=== PATIENT | female | born 1990 | race Caucasian/White ===

== ENCOUNTER 2020-05-20 07:34 | Outpatient (REF) | payer SELFPAY | END 2020-05-20 07:35 | disposition home or self-care (01) | LOC: HO.LAB 07:34 | PROVIDERS: Visit Provider Internal Medicine | DX: Z20.828 Contact with and (suspected) exposure to other viral communicable diseases (principal) | CPT/HCPCS: C9803; U0003 ==

== ENCOUNTER 2024-01-19 01:55 | Emergency (ER) | payer BC, SELFPAY ==
--- NOTE | ~2024-01-19 | US_ITS ---
EXAMINATION: US ABDOMEN LIMITED CLINICAL INFORMATION: Upper abdominal pain, question cholelithiasis. COMPARISON: None available. TECHNIQUE: Real-time imaging of the right upper quadrant abdominal viscera. FINDINGS: PANCREAS: The visualized proximal portion of the pancreas is unremarkable. The distal portion is obscured secondary to overlying bowel gas. LIVER: The liver is normal in size. The liver contour is normal. Parenchymal echogenicity is normal. No focal hepatic lesion. There is no intrahepatic biliary duct dilatation seen. GALLBLADDER: The gallbladder is physiologically distended without evidence of stones, sludge, polyps, wall thickening or pericholecystic fluid. Sonographic Gonzalez sign is reportedly negative. COMMON BILE DUCT: Normal in caliber measuring 0.4 cm in diameter. RIGHT KIDNEY: No hydronephrosis. No renal calculi or focal parenchymal lesions. The kidney measures 11.0 cm in maximum dimension. FREE FLUID: Trace fluid noted at the hepatorenal fossa. US/US abdomen limited IMPRESSION: 1. Normal appearance of the gallbladder. 2. Trace fluid in the hepatorenal fossa, nonspecific.
[2024-01-19 02:00] VITALS: BP 140/79; PULSE 75; RESP 18; TEMP 36.6; O2SAT 97; BMI 46.4
[2024-01-19 02:15] LABS: MANUAL DIFF FLAG NO
[2024-01-19 02:16] LABS: Basophils Percent Auto 0.3 % (0-2); Eosinophils Absolute Auto 0.2 X10*3/uL (0.0-0.4); Eosinophils Percent Auto 1.8 % (0-4); Hematocrit 39.2 % (37.0-47.0); Imm Gran Abs Auto 0.05 X10*3/uL (0.00-0.03); Imm Gran Pct Auto 0.5 % (0.0-0.4); Lymphocytes Absolute Auto 1.5 X10*3/uL (1.2-4.9); Lymphocytes Percent Auto 16.6 % (20-40); Mean Corpuscular HGB Conc 35.7 g/dl (31.0-35.0); Mean Corpuscular Hemoglobin 31.7 pg (27.0-33.0); Mean Corpuscular Volume 88.7 fL (80.0-98.0); Mean Platelet Volume 9.1 fL (9.4-12.3); Monocytes Absolute Auto 0.6 X10*3/uL (0.1-1.2); Monocytes Percent Auto 6.6 % (2-11); Neutrophils Absolute Auto 6.9 x10*3/uL (2.0-8.3); Neutrophils Percent Auto 74.2 % (45-73); Platelet Count 298 X10*3/uL (160-400); Red Blood Count 4.42 X10*6/uL (4.20-5.50); Red Cell Distribution Width 12.3 % (11.0-16.0); White Blood Count 9.3 X10*3/uL (4.8-10.8)
[2024-01-19 02:33] LABS: Alanine Aminotransferase 40 U/L (0-31); Albumin Level 4.2 g/dL (3.5-5.0); Alkaline Phosphatase 56 U/L (39-117); Anion Gap 13 (12-20); Aspartate Amino Transferase 33 U/L (5-31); Bilirubin Total 0.6 mg/dL (0.0-1.0); Blood Urea Nitrogen 7 mg/dL (9-16); Calcium 9.7 mg/dL (8.4-10.2); Carbon Dioxide 24 mmol/L (22-29); Chloride 106 mmol/L (96-108); Creatinine Clr Calc Pharmacy 133.3; Estimated Glomerular Filt Rate > 60; Glucose Random 98 mg/dL (60-115); Lipase 14 U/L (8-78); Potassium 3.3 mmol/L (3.3-5.1); Sodium 140 mmol/L (135-145); Total Protein 6.7 g/dL (6.5-8.0)
--- NOTE | 2024-01-19 02:38 | ED.ABDPAIN ---
HPI - Abdominal Pain General Chief Complaint: Abdominal Pain Stated Complaint: stomach pain Time Seen by Provider: 01/19/24 02:35 Source: patient Mode of arrival: ambulatory Limitations: no limitations History of Present Illness ED Provider: cornelius HOLLEY narrative: Patient with no significant bed medical history apparently was n vacation had few drinks about 2 weeks ago since then complaining of pain in epigastric area was seen at urgent care center was given omeprazole and Zofran without much relief pain is localized in epigastric area with slight nausea no fever no chills Related Data Previous Rx's ?Medication ?Instructions ?Recorded omeprazole 20 mg capsule,delayed 20 mg PO DAILY #20 caps 01/19/24 release sucralfate 1 gram tablet 1 g PO TID #60 tabs 01/19/24 Allergies Allergy/AdvReac Type Severity Reaction Status Date / Time Penicillins Allergy Hives Verified 01/19/24 02:04 Review of Systems Review of Systems Yes all other systems are reviewed and are negative PMFSH Social History Social History Smoked in Last 30 Days: No Use of substances other than those prescribed or required for medical reasons: Yes Substance Use Type: Marijuana Substance Use Frequency: Occasionally Advance Directives: No Advance Directives Information Provided: No Patient : No Physical Exam ED Vital Signs: Vital Signs - 24 hr 01/19/24 02:00 01/19/24 04:07 Temperature 97.8 F 97.8 F Pulse Rate 75 65 Respiratory Rate 18 18 Blood Pressure 140/79 H 106/67 Pulse Oximetry 97 98 Oxygen Delivery Method Room Air Room Air BMI result Body Mass Index 46.4 Appearance: Alert. Oriented X3. No acute distress. Eyes: No pallor or icterus ENT: Pharynx normal. Oral Mucosa moist Neck: Normal inspection. Neck supple. CVS: Normal heart rate and rhythm. Pulses normal. Respiratory: No respiratory distress. Equal air entry bilateral, no wheezing/rales/rhonchi Abdomen: Soft and tender in epigastric area Gonzalez sign negative. Bowel sounds are present, no mass palpable, no CVA tenderness Skin: Skin warm and dry. Normal skin color. Normal skin turgor. Neuro: Oriented X 3. Medical Decision Making Medical Decision Making MDM Narrative: Patient's ultrasound is negative labs are stable patient advised to continue omeprazole for possible gastritis and follow with PCP Differential Diagnosis Differential Diagnoses: The differential diagnosis associated with the presentation includes Acute gastritis/duodenal ulcers/UTI/pancreatitis/gallstone/cholecystitis Lab Data MDM Lab Attestation statement: I reviewed the patient's lab results. 01/19/24 02:11 01/19/24 02:11 Labs: Lab Results 01/19/24 01/19/24 Range/Units 02:11 02:35 WBC 9.3 (4.8-10.8) X10*3/uL RBC 4.42 (4.20-5.50) X10*6/uL Hgb 14.0 (12.0-16.0) g/dl Hct 39.2 (37.0-47.0) % MCV 88.7 (80.0-98.0) fL MCH 31.7 (27.0-33.0) pg MCHC 35.7 H (31.0-35.0) g/dl RDW 12.3 (11.0-16.0) % Plt Count 298 (160-400) X10*3/uL MPV 9.1 L (9.4-12.3) fL Immature Gran % (Auto) 0.5 H (0.0-0.4) % Neut % (Auto) 74.2 H (45-73) % Lymph % (Auto) 16.6 L (20-40) % Howard % (Auto) 6.6 (2-11) % Eos % (Auto) 1.8 (0-4) % Baso % (Auto) 0.3 (0-2) % Lymph # (Auto) 1.5 (1.2-4.9) X10*3/uL Howard # (Auto) 0.6 (0.1-1.2) X10*3/uL Eos # (Auto) 0.2 (0.0-0.4) X10*3/uL Baso # (Auto) 0.0 (0.0-0.2) X10*3/uL Abs Immat Gran (auto) 0.05 H (0.00-0.03) X10*3/uL Absolute Neuts (auto) 6.9 (2.0-8.3) x10*3/uL Absolute Nucleated RBC 0.000 (0.0-0.012) X10*3/uL Nucleated RBC % (auto) 0.0 (0.0-0.2) /100WBC Sodium 140 (135-145) mmol/L Potassium 3.3 (3.3-5.1) mmol/L Chloride 106 (96-108) mmol/L Carbon Dioxide 24 (22-29) mmol/L Anion Gap 13 (12-20) BUN 7 L (9-16) mg/dL Creatinine 0.79 (0.5-1.4) mg/dL Estim Creat Clear Calc 133.3 Estimated GFR > 60 Random Glucose 98 (60-115) mg/dL Calcium 9.7 (8.4-10.2) mg/dL Total Bilirubin 0.6 (0.0-1.0) mg/dL AST 33 H (5-31) U/L ALT 40 H (0-31) U/L Alkaline Phosphatase 56 (39-117) U/L Total Protein 6.7 (6.5-8.0) g/dL Albumin 4.2 (3.5-5.0) g/dL Lipase 14 (8-78) U/L Urine Color Dark Yellow Urine Appearance Clear Urine pH 5.5 (5.0-9.0) Ur Specific [place] 1.025 (1.005-1.025) Urine Protein 30 (1+) H (Neg-Trace) mg/dL Urine Glucose (UA) Negative (Negative) mg/dL Urine Ketones Trace (Negative) mg/dL Urine Blood Small (1+) H (Negative) Urine Nitrite Negative (Negative) Ur Leukocyte Esterase Small (1+) H (Negative) Urine RBC 6-10 H (0-2) /HPF Urine WBC 11-20 H (0-5) /HPF Ur Squamous Epith Cells 6-10 (0-2) /HPF Urine Bacteria Trace (None Seen) Hyaline Casts 0-2 (0-2) /LPF Urine Test NEGATIVE (NEGATIVE) Independent Interpretation I performed an independent interpretation of an: Ultrasound Interpretation: neg for stone Radiology Impression Discussion of test interpretation with radiology: I have reviewed the radiologist's reading. Discharge Plan Discharge Clinical Impression: Gastritis Patient Disposition: Home, Self-Care Instructions: Gastritis (ED) Additional Instructions: Likely have gastritis ultrasound negative for gallstones Continue omeprazole as prescribed Take sucralfate 1 tablet 3 times a day Follow with PCP if not better Prescriptions: New omeprazole 20 mg capsule,delayed release(DR/EC) 20 mg PO DAILY Qty: 20 0RF sucralfate 1 gram tablet 1 g PO TID Qty: 60 0RF Interventions: ED Discharge Assessment Last Done: 01/19/24 04:07 Discharge Date/Time: 01/19/24 04:05 Print Language: Bhutanese
[2024-01-19 02:43] LABS: Appearance Urine Clear; Color Urine Dark Yellow; Glucose Urine UA Negative (Negative); Leukocyte Esterase Urine Small (1+) (Negative); Nitrite Urine Negative (Negative); PH 5.5 (5.0-9.0); Specific Gravity - Urine 1.025 (1.005-1.025); UMIC TRIGGER UACC YES; Urine Blood Small (1+) (Negative); Urine Ketones Trace mg/dL (Negative); Urine Protein 30 (1+) mg/dL (Neg-Trace)
[2024-01-19 02:44] LABS: UPreg QC Valid YES; Urine Pregnancy NEGATIVE (NEGATIVE)
[2024-01-19 02:59] LABS: Bacteria Urine Trace (None Seen); Hyaline Casts Urine 0-2 /LPF (0-2); UACC Culture Trigger YES
--- NOTE | 2024-01-19 03:46 | PC.NURSE ---
pt denies any needs at this time, awaiting US results.
[2024-01-19 04:07] VITALS: BP 106/67; PULSE 65; RESP 18; TEMP 36.6; O2SAT 98
== END 2024-01-19 04:05 | disposition home or self-care (01) ==
PROVIDERS: Emergency Provider Internal Medicine
DX: K29.70 Gastritis, unspecified, without bleeding (principal); R10.13 Epigastric pain
CPT/HCPCS: 36415; 76705; 80053; 81001; 81025; 83690; 85025; 87086; 99284

== ENCOUNTER 2024-01-19 18:38 | Emergency (ER) | payer BC, SELFPAY ==
[2024-01-19 19:13] VITALS: BP 139/84; PULSE 89; RESP 18; TEMP 36.8; O2SAT 98; BMI 46.3
--- NOTE | 2024-01-19 20:34 | PC.NURSE ---
Pt stated to Registration desk she was leaving without further assessment. This RN was not notifed pt LWBS.
== END 2024-01-19 20:41 | disposition left against medical advice (07) ==
LOC: HO.ED 20:39
PROVIDERS: Emergency Provider Emergency Medicine
DX: R10.9 Unspecified abdominal pain (principal); Z53.21 Procedure and treatment not carried out due to patient leaving prior to being seen by health care provider
CPT/HCPCS: 99281

== ENCOUNTER 2024-02-08 15:08 | Outpatient (AMB) | payer BC, SELFPAY ==
[2024-02-08 15:15] VITALS: BP 102/70; PULSE 73; O2SAT 99; BMI 41.9
--- NOTE | 2024-02-08 15:15 | MHC.PC.OV ---
Vital Signs 02/08/24 15:15 Height 5 ft 4 in Weight 244 lb BMI 41.9 BP 102/70 Blood Pressure Location Lt brachial Position Sitting Pulse 73 Pulse Source Pulse Oximeter Pulse Oximetry (%) 99 Oxygen Delivery Method Room Air Intake Visit Reasons: physical Intake Note: Patient is here today for a physical. Bellmaker Required: No Allergies Penicillins Allergy (Verified 02/08/24 15:39) Hives Medication List - Last Reconciled 02/08/24 by Ashtyn Tanner PA-C omeprazole 20 mg PO DAILY sucralfate 1 g PO TID Tobacco use date assessed: 02/08/24 Dental Screening Dental Screen Date: 02/08/24 Did you have a dental visit in the last 12 months?: No Did you have a dental problem in the last 6 months where you did not have access to dental care?: No HPI physical HPI Details 33-year-old female with no documented past medical history coming to the office for the 1st time. Patient was recently seen in emergency department for gastritis continue on omeprazole and given sucralfate. Today she states she has been doing generally well the abdominal pain has been improving. She had been using a friend's muscle relaxers to help with the stomach cramps and did find good relief with this. She no longer has diarrhea. She does mentioned she has a hard time concentrating and does struggle with some degree of anxiety as well. She does not regularly follow with a marine engineering teacher and has not had routine Pap smears. She also mentioned she has several skin tags around her neck and chest area that she would like to have evaluated. [facility] Social History Patient Tobacco Use Status: Never used Tobacco Substance Use Type: Marijuana service: No Cognitive needs: No Hearing needs: No Vision needs: No Female Reproductive History Menstrual control method: none History of abnormal pap smear: No History of STI: No History of abnormal mammogram: No Questionnaire PHQ-9 Over the last 2 weeks, how often have you been bothered by any of the following problems? 1. Little interest or pleasure in doing things: not at all 2. Feeling down, depressed, or hopeless: not at all 3. Trouble falling or staying asleep, or sleeping too much: several days 4. Feeling tired or having little energy: not at all 5. Poor appetite or overeating: not at all 6. Feeling bad about yourself - or that you are a failure or have let yourself or your family down: not at all 7. Trouble concentrating on things, such as reading the newspaper or watching television: more than half the days 8. Moving or speaking so slowly that other people could have noticed. Or the opposite - being so fidgety or restless that you have been moving around a lot more than usual: not at all 9. Thoughts that you would be better off or of hurting yourself in some way: not at all Total score: 3 Depression Screening Interpretation: Negative Depression Screening Done: Yes 79091 - PHQ-9 Billing: Yes Source: Developed by Drs. Noé Ochoa, Sariah Ryan, Deo Porter and colleagues, with an educational philipp from [employer] Thrive Questionnaire Date Thrive assessed: 02/01/24 I am a: Patient What is your living situation today?: I have a steady place to live Within the past 12 months, did the food you bought not last and you didn't have the money to get more?: Never true Within the past 12 months, did you worry whether your food would run out before you got money to buy more?: Never true Do you have trouble paying for medicines?: No Do you have trouble getting transportation to medical appointments?: No Do you have trouble paying your heating and electricity bill?: No Do you have trouble taking care of your child, family member or friend?: No Do you have trouble with day-to-day activities such as bathing, preparing meals, shopping, managing finances, etc.?: No Are you currently unemployed and looking for a job?: No Are you interested in more education?: No Please select the resources that you would like help with: None Currently or been in a relationship where the following occur: No concerns reported THRIVE Score: 0 AUDIT C Alcohol Use Questionnaire (AUDIT-C) 1. How often do you have a drink containing alcohol?: 2-4 times a month 2. How many drinks containing alcohol do you have on a typical day when you are drinking?: 3 or 4 3. How often do you have six or more drinks on one occasion?: Less than monthly Total Score: 4 THAI-7 AMB Questionnaire THAI-7 Date THAI - 7 assessed: 02/08/24 Feeling nervous, anxious, or on edge: 1 = Several days Not being able to stop or control worryin = Several days Worrying too much about different things: 1 = Several days Trouble relaxin = Not at all Being so restless that it is hard to sit still: 0 = Not at all Becoming easily annoyed or irritable: 1 = Several days Feeling afraid as if something awful might happen: 0 = Not at all Total THAI-7 score (0-4 normal; 5-9 mild; 10-14 moderate; 15-21 severe): 4 Source: Developed by Drs. Noé Ochoa, Sariah Ryan, Deo Porter and colleagues, with an educational philipp from [employer] THAI-7 Assessment Billing THAI-7 Assessment Tool: THAI-7 Assessment 88937 Review of Systems Const Denies body aches, Denies fatigue, Denies fever(s), Denies frequent falls, Denies headache(s) and Denies weakness Eyes Reports no additional complaints and Denies change in vision ENT Denies dysphagia, Denies dizziness, Denies facial pain, Denies headache(s), Denies nasal congestion and Denies odynophagia Card Denies chest pain, Denies syncope, Denies irregular heart rhythm, Denies leg edema, Denies lightheadedness and Denies dyspnea Resp Denies cough and Denies dyspnea GI Reports abdominal pain, Denies constipation, Denies dysphagia, Denies dyspepsia, Denies diarrhea, Denies nausea, Denies odynophagia and Denies vomiting Denies urinary frequency, Denies dysuria, Denies urinary hesitancy and Denies urinary urgency Musc Denies back pain and Denies myalgias Skin/Breast Reports as per HPI Neuro Denies dizziness, Denies syncope, Denies frequent falls, Denies headache(s) and Denies weakness Psych Reports as per HPI Endo Denies fatigue Physical exam (Primary Care) Vital Signs: Last Vital Signs Pulse 73 02/08/24 15:15 BP 102/70 02/08/24 15:15 Pulse Ox 99 02/08/24 15:15 Oxygen Delivery Method Room Air 02/08/24 15:15 BMI result Body Mass Index 41.9 Tobacco/Smoking Status: Tobacco use Status Tobacco use date assessed 02/08/24 02/08/24 15:16 Patient Tobacco Use Status Never used Tobacco 02/08/24 15:23 PHQ-9: PHQ-9 Score PHQ-9: Total score 3 02/08/24 15:35 Depression Screening Interpretation: Negative Thrive Assessment: Date of Thrive Assessment Date Thrive assessed 02/01/24 02/08/24 15:16 Currently or been in a relationship where the following occur: No concerns reported Const General: cooperative, healthy appearing, comfortable and no acute distress Orientation/consciousness: patient oriented x3 HENMT Head: Yes normocephalic Ears: hearing grossly normal bilaterally General nose exam: Normal external nose present Eyes General: appearance normal, both eyes and all related structures Conjunctivae: conjunctivae normal Neck Neck: Yes full ROM and Yes no lymphadenopathy Resp Effort & Inspection: normal respiratory effort Auscultation: clear to auscultation bilaterally, no crackles, no rales, no rhonchi and no wheezes Cardio Rate: regular rate Rhythm: regular rhythm GI Inspection: Yes normal to inspection Palpation (GI): Soft to palpation, not firm, nontender, no guarding, not rigid and No Rebound tenderness present Skin Other: Several flesh-colored skin tags on neck and chest Neuro General: patient oriented x3 Gait exam (Neuro): Normal gait present Extrem General: Yes normal to inspection, Yes full ROM and No edema Psych Affect: normal affect Attitude: cooperative Insight: Good insight present (Psych) Judgement: Good judgement present (Psych) Assessment and Plan Assessment & Plan (1) Gastritis: Code(s): K29.70 - Gastritis, unspecified, without bleeding Plan: Patient states the acute flare that she has has not recurred. The abdominal pain has greatly improved however she does still get occasional cramping. The diarrhea has completely resolved at this time. We will trial dicyclomine for stomach cramps however did mentioned the patient if she continues to have symptoms she will need to be evaluated by GI. (2) Poor concentration: Code(s): R41.840 - Attention and concentration deficit Plan: Patient believes she may have ADHD on diagnosed and would like to be evaluated. Referral to [facility] placed for anxiety and ADHD to be established on medications. (3) Anxiety: Code(s): F41.9 - Anxiety disorder, unspecified Plan: Referral to outpatient psych clinic placed today. Also referred to counseling services. (4) Skin tag: Code(s): L91.8 - Other hypertrophic disorders of the skin Plan: Referral to Dermatology placed. (5) Elevated LFTs: Code(s): R79.89 - Other specified abnormal findings of blood chemistry Plan: Patient was found to have elevated LFTs on last blood work. We will follow with additional blood work and if continues to be elevated can consider abdominal ultrasound. Plan We will follow up in 2 months for annual physical. Referral to Gynecology placed for routine Pap smears. Routine blood work ordered. This note was constructed using voice recognition software. While every effort has been made to ensure accuracy and senior java software engineer, still areas may have been included sometimes these areas may affect the content or meeting of the given symptoms. Total time spent caring for the patient today was 30 minutes. This includes time spent before the visit reviewing the chart, time spent during the visit, and time spent after the visit and documentation. Orders: Orders Vitamin B12 and Folate Today Z00.00 - Encounter for general adult medical examination without abnormal findings Lipid Panel Today Z00.00 - Encounter for general adult medical examination without abnormal findings Free T4 (Free Thyroxine) Today Z00.00 - Encounter for general adult medical examination without abnormal findings Thyroid Stimulating Hormone Today Z00.00 - Encounter for general adult medical examination without abnormal findings Vitamin D 25-OH (D2 and D3) Today Z00.00 - Encounter for general adult medical examination without abnormal findings Liver Panel Today R79.89 - Other specified abnormal findings of blood chemistry Referrals PROGRAM MANAGEMENT SPECIALIST Referral Z00.00 - Encounter for general adult medical examination without abnormal findings Counseling Referral F41.9 - Anxiety disorder, unspecified Dermatology Referral L91.8 - Other hypertrophic disorders of the skin Psychiatry Outpatient Consultation Service F41.9 - Anxiety disorder, unspecified, R41.840 - Attention and concentration deficit Medications: New dicyclomine 20 mg PO BID PRN 14 tabs 0RF abdominal pain Coding Level of Care Code New Pt Level 4 (21161) Diagnoses Gastritis K29.70 Poor concentration R41.840 Anxiety F41.9 Skin tag L91.8 Elevated LFTs R79.89 Additional Codes THAI-7 Assessment Billing - THAI-7 Assessment Tool: THAI-7 Assessment 44786 ([id number])
== END 2024-02-08 16:10 | disposition home or self-care (01) ==
DX: K29.70 Gastritis, unspecified, without bleeding (principal); R41.840 Attention and concentration deficit; F41.9 Anxiety disorder, unspecified; L91.8 Other hypertrophic disorders of the skin; R79.89 Other specified abnormal findings of blood chemistry
CPT/HCPCS: 99204

== ENCOUNTER 2024-02-10 08:02 | Outpatient (REF) | payer BC, SELFPAY ==
[2024-02-10 09:08] LABS: Alanine Aminotransferase 21 U/L (0-31); Albumin Level 4.4 g/dL (3.5-5.0); Alkaline Phosphatase 57 U/L (39-117); Aspartate Amino Transferase 18 U/L (5-31); Bilirubin Direct 0.1 mg/dL (0.0-0.5); Bilirubin Total 0.4 mg/dL (0.0-1.0); Cholesterol 211 mg/dL (<200); HDL Cholesterol 40 mg/dL (>40); LDL Cholesterol Calculated 110 mg/dL (<100); Total Protein 7.2 g/dL (6.5-8.0); Triglycerides 307 mg/dL (<150)
[2024-02-10 09:23] LABS: Free T4 (Free Thyroxine) 0.82 ng/dL (0.71-1.85)
[2024-02-10 09:38] LABS: Folate 7.8 ng/mL (> or = 4.0); Vitamin B12 223 pg/mL (200-900)
[2024-02-15 17:23] LABS: Vitamin D 25-OH, D2 <4 ng/mL; Vitamin D 25-OH, D3 22 ng/mL; Vitamin D 25-OH, Total 22 ng/mL (30-100)
== END 2024-02-10 08:03 | disposition home or self-care (01) ==
LOC: HO.LAB 08:02
DX: Z00.00 Encounter for general adult medical examination without abnormal findings (principal); R79.89 Other specified abnormal findings of blood chemistry
CPT/HCPCS: 36415; 80061; 80076; 82306; 82607; 82746; 84439; 84443

== ENCOUNTER 2024-03-10 15:43 | Outpatient (AMB) | payer BC, SELFPAY ==
--- NOTE | 2024-03-10 16:14 | MHC.OFFVISPS ---
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 she has struggled with attention, focus, memory, procrastination most of her life but has always been able to compensate by working harder or longer on taks. She has struggled in her Master program especially with self- paced classes and now with studying for her professional licensure test. She works and gets behind with paperwork requirements as well. She denies depression or anxiety symptoms. Past Psychiatric History: none Subjective Subjective Subjective Medication Compliance: Yes Side effects from medications: No Review of Systems Medical Review of Systems: unchanged Mental Status Exam Mental Status Exam Patient Appearance: Well Grooomed and Appropriate Patient Orientation: Person, Place and Situation Level of Consciousness: Awake and Appropriate Patient Behavior: Appropriate and Cooperative Mood Description: Calm Affect Description: Calm Patient Cognition Impaired: No Ability to Follow Directions: Good Speech Pattern: Clear and Coherent Memory Description: Intact Hallucinations: None Delusions: Not Present Thought Process: Intact Thought Content: positive for Intact Judgement: Good Results Reviewed Results Reviewed: ADHD self report scale scored 30 for inattention and 21 for hyperactivity = moderate inattentive ADHD Assessment and Plan Assessment & Plan (1) ADHD (attention deficit hyperactivity disorder), inattentive type: Status: Acute Code(s): F90.0 - Attention-deficit hyperactivity disorder, predominantly inattentive type Plan trial of ritalin 10mg daily and may go up to BID 4 hours apart if tolerated Medications: New methylphenidate HCl (Ritalin) Partial Fill upon patient request. 10 mg PO DAILY 30 tabs 0RF Counseling and coordination of Care Pt. Self Management counseling: Exercise, Mindfulness, Mod caffeine/ETOH intake, Nutrition education and improvement and Sleep hygiene Medication management counseling: Effectiveness, Side effects, Dosing range, Duration, Drug interaction and Adherence Diagnosis and Prognosis Counseling: Accuracy of diagnosis, Prognosis over time, Impact of diagnosis on life functions, Impact of family relationship, Problematic behaviors secondary to diagnosis and Adequacy of current interventions Details: I spent 70 minutes reviewing the record, seeing the patient and documenting in the medical record. Counseling provided to the patient/caregiver as outlined below. Addressed patient/caregiver concerns regarding current medication regime including effective adherence. Addressed patient/caregiver concerns regarding diagnosis and prognosis including accuracy of diagnosis, prognosis over time, impact of diagnosis. Addressed patient/caregiver concerns regarding impact of recent stressors. [facility] Family History (Updated 03/13/24 @ 14:02 by Yani Nelson APRN) Brother ADHD (attention deficit hyperactivity disorder) Social History Patient Tobacco Use Status: Never used Tobacco Substance Use Type: Marijuana service: No Cognitive needs: No Hearing needs: No Vision needs: No Social History: lives with her lavern and her sister. grew up with both parents and 2 sibs both older than her; did well in school despite attention and focus problems. went to a small private school and had increased structure; made friends easily. Substance History: none Trauma History: none Coding Level of Care Code Psych Diag Eval w/Med (49941) Diagnoses ADHD (attention deficit hyperactivity disorder), inattentive type F90.0
== END 2024-03-10 16:01 | disposition home or self-care (01) ==
LOC: HO.HOP 15:43
PROVIDERS: Visit Provider Clinical Nurse Specialist Psychiatric/Mental Health
DX: F90.0 Attention-deficit hyperactivity disorder, predominantly inattentive type (principal)
CPT/HCPCS: 90792

== ENCOUNTER → 2024-03-10 15:43 | Outpatient (BNVA) | payer BC, SELFPAY | PROVIDERS: Visit Provider Clinical Nurse Specialist Psychiatric/Mental Health | DX: F90.0 Attention-deficit hyperactivity disorder, predominantly inattentive type (principal) | CPT/HCPCS: 90792 ==

== ENCOUNTER 2024-03-20 15:39 | Outpatient (AMB) | payer BC, SELFPAY ==
--- NOTE | 2024-03-20 15:27 | MHC.OFFVISPS ---
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 no change to sleep or appetite; no anxiety Past Psychiatric History: none Subjective Subjective Subjective Medication Compliance: Yes Side effects from medications: No Review of Systems Medical Review of Systems: unchanged Mental Status Exam Mental Status Exam Patient Appearance: Well Grooomed and Appropriate Patient Orientation: Person, Place, Time and Situation Level of Consciousness: Awake, Appropriate and Alert Patient Behavior: Appropriate Mood Description: Calm Affect Description: Calm Patient Cognition Impaired: No Ability to Follow Directions: Good Speech Pattern: Clear Memory Description: Intact Hallucinations: None Delusions: Not Present Thought Process: Intact and Distracted Thought Content: positive for Intact Judgement: Good Telehealth Telehealth Telehealth Platform: Other (please specify) ([employer]) Location of provider rendering services: practice address Location of patient: address on file Patient Identification confirmed using: Name, : Yes Telehealth method: video Patient verbally consented to treatment: Yes Patient verbally consented to billing insurance company: Yes Minutes spent on Phone/Video with Pt.: 20 Assessment and Plan Assessment & Plan (1) ADHD (attention deficit hyperactivity disorder), inattentive type: Status: Acute Code(s): F90.0 - Attention-deficit hyperactivity disorder, predominantly inattentive type Plan stop ritlain start concerta 36mg qam Medications: New methylphenidate HCl ER (Concerta) Partial Fill upon patient request. 36 mg PO DAILY 15 tabs 0RF Discontinued methylphenidate HCl (Ritalin) Partial Fill upon patient request. Discontinued Reason: Doctor's Order 10 mg PO DAILY 30 tabs 0RF Counseling and coordination of Care Pt. Self Management counseling: Maintenance-social rhythm, Mod caffeine/ETOH intake, Nutrition education and improvement, Sleep hygiene and Behavior activation Medication management counseling: Effectiveness, Side effects, Dosing range, Duration, Drug interaction and Adherence Diagnosis and Prognosis Counseling: Accuracy of diagnosis, Prognosis over time, Impact of diagnosis on life functions and Adequacy of current interventions Details: I spent 30 minutes reviewing the record, seeing the patient and documenting in the medical record. Counseling provided to the patient/caregiver as outlined below. Addressed patient/caregiver concerns regarding current medication regime including effective adherence. Addressed patient/caregiver concerns regarding diagnosis and prognosis including accuracy of diagnosis, prognosis over time, impact of diagnosis. Addressed patient/caregiver concerns regarding impact of recent stressors. [facility] Family History (Updated 03/13/24 @ 14:02 by Yani Nelson APRN) Brother ADHD (attention deficit hyperactivity disorder) Social History Patient Tobacco Use Status: Never used Tobacco Substance Use Type: Marijuana service: No Cognitive needs: No Hearing needs: No Vision needs: No Social History: lives with her fianc?e and her sister. grew up with both parents and 2 sibs both older than her; did well in school despite attention and focus problems. went to a small private school and had increased structure; made friends easily. Substance History: none Trauma History: none Coding Level of Care Code Tele Est Pt Level 4 (88336) Diagnoses ADHD (attention deficit hyperactivity disorder), inattentive type F90.0
== END 2024-03-20 15:51 | disposition home or self-care (01) ==
LOC: HO.HOP 15:39
PROVIDERS: Visit Provider Clinical Nurse Specialist Psychiatric/Mental Health
DX: F90.0 Attention-deficit hyperactivity disorder, predominantly inattentive type (principal)
CPT/HCPCS: 99214

== ENCOUNTER → 2024-03-20 15:39 | Outpatient (BNVA) | payer BC, SELFPAY | PROVIDERS: Visit Provider Clinical Nurse Specialist Psychiatric/Mental Health ==

== ENCOUNTER 2024-04-14 14:44 | Outpatient (AMB) | payer BC, SELFPAY ==
[2024-04-14 14:45] VITALS: BP 122/70; PULSE 58; O2SAT 99; BMI 41.2
--- NOTE | 2024-04-14 14:45 | A.OFFPC_ITS ---
Vital Signs 04/14/24 14:45 Height 5 ft 4 in Weight 240 lb 0.8 oz BMI 41.2 BP 122/70 Blood Pressure Location Lt brachial Position Sitting Pulse 58 Pulse Source Pulse Oximeter Pulse Oximetry (%) 99 Oxygen Delivery Method Room Air Intake Visit Reasons: 2 months follow up In Flight Technician Required: No Allergies Penicillins Allergy (Verified 04/14/24 14:46) Hives Medication List - Last Reconciled 04/14/24 by Ashtyn Tanner PA-C cholecalciferol (vitamin D3) 25 mcg PO DAILY dicyclomine 20 mg PO BID PRN methylphenidate HCl ER (Concerta) 36 mg PO DAILY omeprazole 20 mg PO DAILY sucralfate 1 g PO TID Tobacco use date assessed: 02/08/24 Dental Screening Dental Screen Date: 02/08/24 HPI 2 months follow up HPI Details 33-year-old female with past medical his tory of ADHD and anxiety last seen January 2024 coming in for follow up. In review of the notes, patient was seen by outpatient psych 03/20/2024 discontinue Ritalin at that time and started on Concerta 36 mg for ADHD. Patient feels the Concerta has not been working for her. She was scheduled to have an appointment with psych last week but missed the appointment and is rescheduling. Continues to have difficulty concentrating. [facility] Family History (Updated 03/13/24 @ 14:02 by Yani Nelson APRN) Brother ADHD (attention deficit hyperactivity disorder) Social History Patient Tobacco Use Status: Never used Tobacco Substance Use Type: Marijuana service: No Cognitive needs: No Hearing needs: No Vision needs: No Questionnaire Thrive Questionnaire Date Thrive assessed: 02/01/24 I am a: Patient What is your living situation today?: I have a steady place to live Within the past 12 months, did the food you bought not last and you didn't have the money to get more?: Never true Within the past 12 months, did you worry whether your food would run out before you got money to buy more?: Never true Do you have trouble paying for medicines?: No Do you have trouble getting transportation to medical appointments?: No Do you have trouble paying your heating and electricity bill?: No Do you have trouble taking care of your child, family member or friend?: No Do you have trouble with day-to-day activities such as bathing, preparing meals, shopping, managing finances, etc.?: No Are you currently unemployed and looking for a job?: No Are you interested in more education?: No Please select the resources that you would like help with: None Currently or been in a relationship where the following occur: No concerns reported THRIVE Score: 0 AUDIT C Alcohol Use Questionnaire (AUDIT-C) 1. How often do you have a drink containing alcohol?: 2-4 times a month 2. How many drinks containing alcohol do you have on a typical day when you are drinking?: 3 or 4 3. How often do you have six or more drinks on one occasion?: Less than monthly Total Score: 4 THAI-7 AMB Questionnaire THAI-7 Date THAI - 7 assessed: 02/08/24 Source: Developed by Drs. Noé Ochoa, Sariah Ryan, Deo Porter and colleagues, with an educational philipp from [employer]. Review of Systems Const Denies body aches, Denies chills and Denies fever(s) Eyes Reports no additional complaints ENT Reports no additional complaints Card Denies chest pain, Denies leg edema, Denies lightheadedness and Denies dyspnea Resp Denies dyspnea GI Reports no additional complaints Musc Reports no additional complaints Skin/Breast Reports system reviewed and no additional complaints, except as documented Physical exam (Primary Care) Vital Signs: Last Vital Signs Pulse 58 04/14/24 14:45 BP 122/70 04/14/24 14:45 Pulse Ox 99 04/14/24 14:45 Oxygen Delivery Method Room Air 04/14/24 14:45 BMI result Body Mass Index 41.2 Tobacco/Smoking Status: Tobacco use Status Tobacco use date assessed 02/08/24 04/14/24 14:48 Patient Tobacco Use Status Never used Tobacco 04/14/24 14:48 Thrive Assessment: Date of Thrive Assessment Date Thrive assessed 02/01/24 04/14/24 14:48 Currently or been in a relationship where the following occur: No concerns reported Const General: cooperative, healthy appearing, comfortable and no acute distress Orientation/consciousness: patient oriented x3 HENMT Head: Yes normocephalic Ears: hearing grossly normal bilaterally General nose exam: Normal external nose present Eyes General: appearance normal, both eyes and all related structures Conjunctivae: conjunctivae normal Neck Neck: Yes full ROM and Yes no lymphadenopathy Resp Effort & Inspection: normal respiratory effort Auscultation: clear to auscultation bilaterally, no crackles, no rales, no rhonchi and no wheezes Cardio Rate: regular rate Rhythm: regular rhythm Skin General skin exam: no rashes or lesions noted Neuro General: patient oriented x3 Gait exam (Neuro): Normal gait present Extrem General: Yes normal to inspection, Yes full ROM and No edema Psych Affect: normal affect Attitude: cooperative Insight: Good insight present (Psych) Judgement: Good judgement present (Psych) Office Procedures Flu Questionnaire Does the patient have a severe egg allergy?: No Does the patient have severe life threatening allergies?: No Does the patient have a fever or illness today?: No Has the patient ever had Guillain-Penrose Syndrome?: No Has the patient ever had any past reaction to a flu shot?: No Immunizations Fluarix Triv [id number] (PF) 45 mcg (15 mcg x 3)/0.5 mL IM syringe Performing Provider: Ashtyn Tanner PA-C [facility] Administered by: ZAK Peñaloza on 04/14/24 15:08 Dose Route Admin Location Dispensed Lot Number Expiration Date [facility] Judicial Clerk 0.5 mL IM Left Deltoid 0.5 mL [id number] 12/25/24 24672-071-17 [facility] V[facility] Given Date VIS Provided VIS Publication Date 04/14/24 Single Vaccine 21 Eligibility Eligibility Date Funding Source Not [facility] Eligible 04/14/24 Private Coding Level of Care Code Est Pt Level 3 (49014) Diagnoses ADHD (attention deficit hyperactivity disorder), inattentive type F90.0 Hypertriglyceridemia E78.1 Assessment & Plan Assessment & Plan (1) ADHD (attention deficit hyperactivity disorder), inattentive type: Code(s): F90.0 - Attention-deficit hyperactivity disorder, predominantly inattentive type Category: Medical Plan: Continue to follow with psych. Continue on present medication. (2) Hypertriglyceridemia: Code(s): E78.1 - Pure hyperglyceridemia Category: Medical Plan: Avoid foods that are high in cholesterol such as red meat, fried foods, eggs and baked goods. Triglyceride goal of less than 150 and LDL goal of less than 130. Ordered updated blood work and we will follow up in 3 months. Plan This note was constructed using voice recognition software. While every effort has been made to ensure accuracy and checker and packer, still areas may have been included sometimes these areas may affect the content or meeting of the given symptoms. Total time spent caring for the patient today was 20 minutes. This includes time spent before the visit reviewing the chart, time spent during the visit, and time spent after the visit and documentation. Orders: Orders Influenza [id number] Immunization Today Z23 - Encounter for immunization Lipid Panel Today E78.1 - Pure hyperglyceridemia Medications: New Fluarix Triv [id number] (PF) (flu vacc [id number] 6mos up(PF)) 0.5 mL IM ONCE 0.5 mL 0RF NS Z23 - Encounter for immunization
== END 2024-04-14 15:17 | disposition home or self-care (01) ==
DX: F90.0 Attention-deficit hyperactivity disorder, predominantly inattentive type (principal); E78.1 Pure hyperglyceridemia; Z23 Encounter for immunization

== ENCOUNTER → 2024-04-14 14:44 | Outpatient (BNVA) | payer BC, SELFPAY | DX: F90.0 Attention-deficit hyperactivity disorder, predominantly inattentive type (principal); E78.1 Pure hyperglyceridemia; Z23 Encounter for immunization | CPT/HCPCS: 90471; 90656 ==

== ENCOUNTER 2025-02-07 10:56 | Outpatient (REF) | payer OTHER, SELFPAY ==
[2025-02-07 11:16] LABS: MANUAL DIFF FLAG NO
[2025-02-07 11:35] LABS: Hematocrit 38.6 % (37.0-47.0); Hemoglobin 13.7 g/dl (12.0-16.0); Imm Gran Abs Auto 0.04 X10*3/uL (0.00-0.03); Imm Gran Pct Auto 0.5 % (0.0-0.4); Lymphocytes Absolute Auto 1.3 X10*3/uL (1.2-4.9); Mean Corpuscular HGB Conc 35.5 g/dl (31.0-35.0); Mean Corpuscular Hemoglobin 31.6 pg (27.0-33.0); Mean Corpuscular Volume 88.9 fL (80.0-98.0); NRBC Abs Auto 0.000 X10*3/uL (0.0-0.012); NRBC Pct Auto 0.0 /100WBC (0.0-0.2); Platelet Count 315 X10*3/uL (160-400); Red Blood Count 4.34 X10*6/uL (4.20-5.50); White Blood Count 8.8 X10*3/uL (4.8-10.8)
--- OUTSIDE RECORDS SUMMARY | 2025-02-07 11:51 | XMS_ITS | Encounter Summary ---
Author Organization [facility] Address [address] [place] [address] Phone Care Team Providers Care Vaccinator Name Role Phone Megan Mendoza MD Primary Care Provider [phone] Encounter Details Date Type Department Care Team (Late st Contact Info) Description 02/11/2017 Conversion Encounter [facility] [place] [address] [place] [address] Social History Tobacco Use Types Packs/Day Years Used Date Smoking Tobacco: Never Comments:Never smoker Comments Unknown Sex and Gender Information Value Date Recorded Sex Assigned at Not on file Legal Sex Female 4:45 PM EDT Gender Identity Not on file Sexual Orientation Not on file documented as of this encounter Plan of Treatment Not on file documented as of this encounter Visit Diagnoses Not on filedocumented in this encounter Care Teams Vaccinator Relationship Specialty Start Date End Date Megan Mendoza MD [address] [place] [address] PCP - General 02/05/17 08/12/22 documented as of this encounter
[2025-02-07 12:24] LABS: Alanine Aminotransferase 32 U/L (0-31); Albumin Level 4.6 g/dL (3.5-5.0); Alkaline Phosphatase 64 U/L (39-117); Anion Gap 10 (12-20); Aspartate Amino Transferase 35 U/L (5-31); Blood Urea Nitrogen 10 mg/dL (9-16); Calcium 9.2 mg/dL (8.4-10.2); Carbon Dioxide 27 mmol/L (22-29); Chloride 108 mmol/L (96-108); Cholesterol 215 mg/dL (<200); Estimated Glomerular Filt Rate > 60; HDL Cholesterol 39 mg/dL (>40); Potassium 4.2 mmol/L (3.3-5.1); Sodium 141 mmol/L (135-145); Total Protein 7.2 g/dL (6.5-8.0); Triglycerides 197 mg/dL (<150)
[2025-02-07 12:34] LABS: Free T4 (Free Thyroxine) 0.92 ng/dL (0.71-1.85)
[2025-02-07 12:38] LABS: Folate 11.1 ng/mL (> or = 4.0); Vitamin B12 233 pg/mL (200-900)
== END 2025-02-07 10:57 | disposition home or self-care (01) ==
LOC: HO.LAB 10:56
DX: Z00.00 Encounter for general adult medical examination without abnormal findings (principal); Z13.29 Encounter for screening for other suspected endocrine disorder; Z13.21 Encounter for screening for nutritional disorder; E78.00 Pure hypercholesterolemia, unspecified; E78.1 Pure hyperglyceridemia; R79.89 Other specified abnormal findings of blood chemistry
CPT/HCPCS: 36415; 80053; 80061; 82306; 82607; 82746; 84439; 84443; 85025

== ENCOUNTER 2025-02-09 12:44 | Outpatient (REF) | payer OTHER, SELFPAY ==
--- OUTSIDE RECORDS SUMMARY | 2025-02-09 12:46 | XMS_ITS | Encounter Summary ---
Author Organization [facility] Address [address] [place] [address] Phone Care Team Providers Care Processing Clerk Name Role Phone Megan Mendoza MD Primary Care Provider [phone] Encounter Details Date Type Department Care Team (Late st Contact Info) Description 02/11/2017 Conversion Encounter [facility] [place] [address] [place] [address] Social History Tobacco Use Types Packs/Day Years [...] on filedocumented in this encounter Care Teams Processing Clerk Relationship Specialty Start Date End Date Megan Mendoza MD [address] [place] [address] PCP - General 02/05/17 08/12/22 documented as of this encounter
[2025-02-09 13:35] LABS: Resp Syncy Virus RNA Qual PCR NEGATIVE (Negative); SARS COV2 PCR INHOUSE NEGATIVE (Negative)
== END 2025-02-09 12:45 | disposition home or self-care (01) ==
LOC: HO.LAB 12:44
DX: Z00.00 Encounter for general adult medical examination without abnormal findings (principal); E78.1 Pure hyperglyceridemia; E55.9 Vitamin D deficiency, unspecified; F90.0 Attention-deficit hyperactivity disorder, predominantly inattentive type; F41.9 Anxiety disorder, unspecified; R79.89 Other specified abnormal findings of blood chemistry; L91.8 Other hypertrophic disorders of the skin; E66.01 Morbid (severe) obesity due to excess calories; J06.9 Acute upper respiratory infection, unspecified; E78.00 Pure hypercholesterolemia, unspecified
CPT/HCPCS: 87637; 96127

== ENCOUNTER 2025-02-09 14:19 | Outpatient (AMB) | payer OTHER, SELFPAY ==
--- NOTE | 2025-02-09 14:29 | A.OFFPC_ITS ---
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 Accompanied by: Self / Same As Patient Allergies Penicillins Allergy (Verified 02/09/25 14:57) Hives Medication List - Last Reconciled 02/09/25 by Ashtyn Tanner PA-C Tobacco use date assessed: 02/09/25 Dental Screening Dental Screen Date: 02/09/25 Did you have a dental visit in the last 12 months?: No Did you have a dental problem in the last 6 months where you did not have access to dental care?: No Was dental information given to patient?: No HPI follow up appt HPI Details 34 year old female with past medical his tory of high triglycerides, elevated LFTs and ADHD last seen 03/2024 coming in for annual exam. Presenting with a wellness check and management of chronic conditions. Elevated liver enzymes have been a concern, with mild elevations noted in past tests. Hypertriglyceridemia was previously at 307 mg/dL and has decreased to 197 mg/dL. The patient has borderline asthma, requiring an inhaler during respiratory infections. Vitamin D deficiency was identified, with normal thyroid and B12 levels. The patient reports an upper respiratory infection lasting four days. pap smear: reminded about frontload driver vaccines: U[facility] Family History Brother ADHD (attention deficit hyperactivity disorder) Social History Patient Tobacco Use Status: Never used Tobacco Substance Use Type: Marijuana service: No Cognitive needs: No Hearing needs: No Vision needs: No Questionnaire PHQ-9 Over the last 2 weeks, how often have you been bothered by any of the following problems? 1. Little interest or pleasure in doing things: not at all 2. Feeling down, depressed, or hopeless: not at all 3. Trouble falling or staying asleep, or sleeping too much: not at all 4. Feeling tired or having little energy: not at all 5. Poor appetite or overeating: not at all 6. Feeling bad about yourself - or that you are a failure or have let yourself or your family down: not at all 7. Trouble concentrating on things, such as reading the newspaper or watching television: not at all 8. Moving or speaking so slowly that other people could have noticed. Or the opposite - being so fidgety or restless that you have been moving around a lot more than usual: not at all 9. Thoughts that you would be better off or of hurting yourself in some way: not at all Total score: 0 Depression Screening Interpretation: Negative Depression Screening Done: Yes 26564 - PHQ-9 Billing: Yes Source: Developed by Drs. Noé Ochoa, Sariah Ryan, Deo Porter and colleagues, with an educational philipp from [employer]. Thrive Questionnaire Date Thrive assessed: 02/09/25 I am a: Patient What is your living situation today?: I have a steady place to live Within the past 12 months, did the food you bought not last and you didn't have the money to get more?: Never true Within the past 12 months, did you worry whether your food would run out before you got money to buy more?: Never true Do you have trouble paying for medicines?: No Do you have trouble getting transportation to medical appointments?: No Do you have trouble paying your heating and electricity bill?: No Do you have trouble taking care of your child, family member or friend?: No Do you have trouble with day-to-day activities such as bathing, preparing meals, shopping, managing finances, etc.?: No Are you currently unemployed and looking for a job?: No Are you interested in more education?: No Please select the resources that you would like help with: None Currently or been in a relationship where the following occur: No concerns reported THRIVE Score: 0 AUDIT C Alcohol Use Questionnaire (AUDIT-C) 1. How often do you have a drink containing alcohol?: 2-4 times a month 2. How many drinks containing alcohol do you have on a typical day when you are drinking?: 3 or 4 3. How often do you have six or more drinks on one occasion?: Monthly Total Score: 5 THAI-7 AMB Questionnaire THAI-7 Date THAI - 7 assessed: 02/09/25 Feeling nervous, anxious, or on edge: 1 = Several days Not being able to stop or control worryin = Not at all Worrying too much about different things: 1 = Several days Trouble relaxin = Not at all Being so restless that it is hard to sit still: 0 = Not at all Becoming easily annoyed or irritable: 1 = Several days Feeling afraid as if something awful might happen: 0 = Not at all Total THAI-7 score (0-4 normal; 5-9 mild; 10-14 moderate; 15-21 severe): 3 Source: Developed by Drs. Noé Ochoa, Sariah Ryan, Deo Porter and colleagues, with an educational philipp from [employer]. THAI-7 Assessment Billing THAI-7 Assessment Tool: THAI-7 Assessment 70074 Review of Systems Const Denies body aches, Denies fatigue, Denies fever(s), Denies frequent falls, Denies headache(s) and Denies weakness Eyes Reports no additional complaints and Denies change in vision ENT Denies dysphagia, Denies dizziness, Denies facial pain, Denies headache(s), Denies nasal congestion and Denies odynophagia Card Denies chest pain, Denies syncope, Denies irregular heart rhythm, Denies leg edema, Denies lightheadedness and Denies dyspnea Resp Denies cough and Denies dyspnea GI Denies constipation, Denies dysphagia, Denies dyspepsia, Denies diarrhea, Denies nausea, Denies odynophagia and Denies vomiting Denies urinary frequency, Denies dysuria, Denies urinary hesitancy and Denies urinary urgency Musc Denies back pain and Denies myalgias Skin/Breast Reports system reviewed and no additional complaints, except as documented Neuro Denies dizziness, Denies syncope, Denies frequent falls, Denies headache(s) and Denies weakness Psych Reports no additional complaints Endo Denies fatigue Physical exam (Primary Care) Vital Signs: Last Vital Signs Pulse 77 02/09/25 14:31 BP 122/56 L 02/09/25 14:31 Pulse Ox 96 02/09/25 14:31 Oxygen Delivery Method Room Air 02/09/25 14:31 BMI result Body Mass Index 44.3 Tobacco/Smoking Status: Tobacco use Status Tobacco use date assessed 02/09/25 02/09/25 14:35 Patient Tobacco Use Status Never used Tobacco 02/09/25 14:35 PHQ-9: PHQ-9 Score PHQ-9: Total score 0 02/09/25 14:59 Depression Screening Interpretation: Negative Thrive Assessment: Date of Thrive Assessment Date Thrive assessed 02/09/25 02/09/25 14:35 Currently or been in a relationship where the following occur: No concerns reported Const General: cooperative, healthy appearing, comfortable and no acute distress Orientation/consciousness: patient oriented x3 HENMT Head: Yes normocephalic Ears: hearing grossly normal bilaterally, external ears normal, TM's normal bilaterally and EAC's normal General nose exam: Normal external nose present Face and sinus: Yes normal facial exam and Yes sinuses nontender Mouth: Normal oral and palatal mucosa present and tongue normal Throat: Yes posterior oropharynx normal Eyes General: appearance normal, both eyes and all related structures Conjunctivae: conjunctivae normal Pupils: Equal, round and reactive pupils present EOM: EOMs intact bilaterally and No Nystagmus present Neck Neck: Yes normal visual inspection, Yes full ROM and Yes no lymphadenopathy Chest Chest palpation & inspection: normal inspection of the chest Resp Effort & Inspection: normal respiratory effort Auscultation: clear to auscultation bilaterally, no crackles, no rales, no rhonchi, no wheezes and breath sounds present Cardio Rate: regular rate Rhythm: regular rhythm Peripheral pulses: radial pulses present and dorsalis pedis present GI Inspection: Yes normal to inspection and No Abdominal wall edema Palpation (GI): Soft to palpation, not firm and nontender Auscultation: normal bowel sounds Rectal Exam - Female: deferred General: Yes no CVA tenderness Back/Spine/Pelvis Back: no CVA tenderness Skin General skin exam: no rashes or lesions noted Neuro General: patient oriented x3 Cranial nerves: Yes Equal, round and reactive pupils present, Yes Midline tongue present, Yes Ability to bilaterally elevate shoulders present and No Nystagmus present Gait exam (Neuro): Normal gait present Extrem General: Yes normal to inspection, Yes full ROM, No no pedal edema and No edema Psych Speech and movement: Normal speech and movement present Affect: normal affect Insight: Good insight present (Psych) Judgement: Good judgement present (Psych) Coding Level of Care Code Est Pt Prev Care 18-39y(71411) Diagnoses Annual physical exam Z00.00 ADHD (attention deficit hyperactivity disorder), inattentive type F90.0 Anxiety F41.9 Hypertriglyceridemia E78.1 Elevated LFTs R79.89 Skin tag L91.8 Morbid obesity E66.01 Upper respiratory infection J06.9 Additional Codes THAI-7 Assessment Billing - THAI-7 Assessment Tool: THAI-7 Assessment 58449 ([id number]) PHQ-9 - 04451 - PHQ-9 Billing: Yes ([id number]) Assessment & Plan Assessment & Plan (1) Annual physical exam: Code(s): Z00.00 - Encounter for general adult medical examination without abnormal findings Category: Medical Plan: Patient is up-to-date on all recommended routine screenings and vaccinations for her age. Healthy diet and regular exercise is encouraged. Plan for updated blood work in 6 months. (2) ADHD (attention deficit hyperactivity disorder), inattentive type: Code(s): F90.0 - Attention-deficit hyperactivity disorder, predominantly inattentive type Category: Medical Plan: Patient is no longer following with a psychiatrist and she did not find it helpful. She agrees to reach out if she would like to see a psychiatrist again. (3) Anxiety: Code(s): F41.9 - Anxiety disorder, unspecified Category: Medical Plan: Patient reporting anxiety and is not interested in medication at this time or counseling. (4) Hypertriglyceridemia: Code(s): E78.1 - Pure hyperglyceridemia Category: Medical Plan: Avoid foods that are high in cholesterol such as red meat, fried foods, eggs and baked goods. Triglyceride goal of less than 150 and LDL goal of less than 130. Discussed lifestyle and dietary modification as well as weight loss. (5) Elevated LFTs: Code(s): R79.89 - Other specified abnormal findings of blood chemistry Category: Medical Plan: Healthy diet and regular exercise is encouraged. Continue to watch LFTs (6) Skin tag: Code(s): L91.8 - Other hypertrophic disorders of the skin Category: Medical Plan: Referral was placed to Dermatology again today as her insurance change. (7) Morbid obesity: Code(s): E66.01 - Morbid (severe) obesity due to excess calories Category: Medical Plan: Healthy diet and regular exercise is encouraged. Goal for patient to lose 5% of body weight in the next 6 months. Discussed dietary and lifestyle modification. Medication was also discussed at this visit however she would like to hold off on medication at this time and agrees to reach out if this change. (8) Upper respiratory infection: Code(s): J06.9 - Acute upper respiratory infection, unspecified Category: Medical Plan: Patient was given albuterol inhaler to be used as needed as she frequently has wheezing when she developed upper respiratory infections. She is also given benzonatate to be used as needed for the cough. Low suspicion for sinusitis this time or pneumonia however patient was reviewed red flag symptoms and when to present for re-evaluation. Viral testing negative Plan The plan includes monitoring liver enzymes and cholesterol levels in six months to assess any changes and the effectiveness of lifestyle modifications. The patient is advised to continue dietary adjustments and increase physical activity to manage hypertriglyceridemia and overall health. A referral to dermatology and gynecology has been made to address outstanding preventative care needs. For the current upper respiratory infection, symptomatic treatment with cough medication and an inhaler is provided, with instructions to monitor symptoms and seek further care if necessary. This note was constructed using voice recognition software. While every effort has been made to ensure accuracy and cabinet mounter, still areas may have been included sometimes these areas may affect the content or meeting of the given symptoms. Total time spent caring for the patient today was 30 minutes. This includes time spent before the visit reviewing the chart, time spent during the visit, and time spent after the visit and documentation. Patient was informed and verbally consented to the use of an ambient scribe for clinic note documentation during this visit. Orders: Orders Lipid Panel 6 Months E78.00 - Pure hypercholesterolemia, unspecified Liver Panel 6 Months R79.89 - Other specified abnormal findings of blood chemistry Referrals Dermatology Referral L91.8 - Other hypertrophic disorders of the skin Medications: New albuterol sulfate 90 mcg/actuation (Ventolin HFA) 1 inh inhalation QID PRN 6.7 grams 0RF shortness of breath or wheezing benzonatate 200 mg PO BID PRN 30 caps 0RF cough
[2025-02-09 14:31] VITALS: BP 122/56; PULSE 77; O2SAT 96; BMI 44.3
== END 2025-02-09 15:25 | disposition home or self-care (01) ==
LOC: HO.HMCH 14:20
DX: Z00.00 Encounter for general adult medical examination without abnormal findings (principal); F90.0 Attention-deficit hyperactivity disorder, predominantly inattentive type; E66.01 Morbid (severe) obesity due to excess calories; Z68.41 Body mass index [BMI] 40.0-44.9, adult; F41.9 Anxiety disorder, unspecified; E78.1 Pure hyperglyceridemia; L91.8 Other hypertrophic disorders of the skin; R79.89 Other specified abnormal findings of blood chemistry; J06.9 Acute upper respiratory infection, unspecified

== ENCOUNTER 2025-06-19 10:21 | Outpatient (AMB) | payer OTHER, SELFPAY ==
[2025-06-19 10:24] VITALS: BP 116/60; PULSE 61; RESP 18; O2SAT 99; BMI 45.2
--- NOTE | 2025-06-19 10:24 | A.OFFPC_ITS ---
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 Accompanied by: Self / Same As Patient Allergies Penicillins Allergy (Verified 06/19/25 10:40) Hives Medication List - Last Reconciled 06/19/25 by LAZ [place] benzonatate 200 mg PO BID PRN Ventolin HFA 90 mcg/actuation (albuterol sulfate) 1 inh inhalation QID PRN NS Tobacco use date assessed: 06/19/25 Dental Screening Dental Screen Date: 06/19/25 Did you have a dental visit in the last 12 months?: No Did you have a dental problem in the last 6 months where you did not have access to dental care?: No Was dental information given to patient?: No HPI HPI Comments History of Present Illness Details The patient is a 35 year old female presenting with a cough. She reports having a cough for about two weeks, with a productive cough of phlegm for approximately one month. The sputum is described as yellowish in color. Associated symptoms include postnasal drip, nasal congestion, and shortness of breath that occurs only with coughing fits. The cough is noted to be worse at nighttime when she is lying down. She denies any fevers, chills, sore throat, or ear pain. The patient has a history of asthma. She was previously sick with a cough in January and was prescribed albuterol, but she was unable to obtain the inhaler due to insurance requiring a prior authorization. Health Maintenance Social History - Employment: The patient works with [employer] Results [facility] Family History Brother ADHD (attention deficit hyperactivity disorder) Social History Patient Tobacco Use Status: Never used Tobacco Substance Use Type: Marijuana service: No Cognitive needs: No Hearing needs: No Vision needs: No Questionnaire Thrive Questionnaire Date Thrive assessed: 06/19/25 I am a: Patient What is your living situation today?: I have a steady place to live Within the past 12 months, did the food you bought not last and you didn't have the money to get more?: Never true Within the past 12 months, did you worry whether your food would run out before you got money to buy more?: Never true Do you have trouble paying for medicines?: No Do you have trouble getting transportation to medical appointments?: No Do you have trouble paying your heating and electricity bill?: No Do you have trouble taking care of your child, family member or friend?: No Do you have trouble with day-to-day activities such as bathing, preparing meals, shopping, managing finances, etc.?: No Are you currently unemployed and looking for a job?: No Are you interested in more education?: No Currently or been in a relationship where the following occur: No concerns reported THRIVE Score: 0 THAI-7 AMB Questionnaire THAI-7 Date THAI - 7 assessed: 02/09/25 Source: Developed by Drs. Noé Ochoa, Sariah Ryan, Deo Porter and colleagues, with an educational philipp from [employer]. Review of Systems Narrative Review of Systems - Respiratory: Reports a productive cough of one-month duration with yellowish sputum. - Reports dyspnea with coughing fits. - ENT: Reports postnasal drip and nasal congestion. - Denies sore throat and ear pain. - Constitutional: Denies subjective fevers or chills. Const Denies body aches, Denies chills, Denies fever(s), Denies headache(s) and Denies poor appetite Eyes Reports no additional complaints ENT Denies dysphagia, Denies dizziness, Denies headache(s), Reports nasal congestion and Denies odynophagia Card Denies chest pain, Denies syncope, Denies edema, Denies irregular heart rhythm, Denies lightheadedness and Reports dyspnea (with coughing fits) Resp Reports cough (on and off) and Reports dyspnea (with coughing fits) GI Denies abdominal pain, Denies constipation, Denies dysphagia, Denies diarrhea, Denies nausea, Denies odynophagia and Denies vomiting Reports no additional complaints Musc Reports no additional complaints and Denies abnormal gait Skin/Breast Reports system reviewed and no additional complaints, except as documented Neuro Denies abnormal gait, Denies dizziness, Denies syncope and Denies headache(s) Psych Reports no additional complaints Physical exam (Primary Care) Vital Signs: Last Vital Signs Pulse 61 06/19/25 10:24 Resp 18 06/19/25 10:24 BP 116/60 06/19/25 10:24 Pulse Ox 99 06/19/25 10:24 Oxygen Delivery Method Room Air 06/19/25 10:24 BMI result Body Mass Index 45.2 Tobacco/Smoking Status: Tobacco use Status Tobacco use date assessed 06/19/25 06/19/25 10:28 Patient Tobacco Use Status Never used Tobacco 06/19/25 10:28 Thrive Assessment: Date of Thrive Assessment Date Thrive assessed 06/19/25 06/19/25 10:28 Currently or been in a relationship where the following occur: No concerns reported Narrative Physical Exam - Vitals: A low-grade fever was noted. - Lungs: Clear to auscultation bilaterally. Const General: cooperative, healthy appearing, comfortable and no acute distress Orientation/consciousness: patient oriented x3 HENMT Head: Yes normocephalic Ears: hearing grossly normal bilaterally General nose exam: Abnormal mucous membranes and turbinates present boggy bilateral and erythematous bilateral and Nasal discharge present purulent on the left Eyes General: appearance normal, both eyes and all related structures Conjunctivae: conjunctivae normal Neck Neck: Yes full ROM and Yes no lymphadenopathy Resp Effort & Inspection: normal respiratory effort Auscultation: clear to auscultation bilaterally, no crackles, no rales, no rhonchi and no wheezes Cardio Rate: regular rate Rhythm: regular rhythm GI Palpation (GI): Soft to palpation and nontender Auscultation: normal bowel sounds Skin General skin exam: no rashes or lesions noted Neuro General: patient oriented x3 Gait exam (Neuro): Normal gait present Extrem General: Yes normal to inspection, Yes full ROM and No edema Psych Affect: normal affect Attitude: cooperative Insight: Good insight present (Psych) Judgement: Good judgement present (Psych) Coding Level of Care Code Est Pt Level 3 (71376) Diagnoses Rhinosinusitis J32.9 Asthma, unspecified asthma severity, unspecified whether complicated, unspecified whether persistent J45.909 Asthma severity: unspecified severity Asthma persistence: unspecified Asthma complication type: unspecified Subacute cough R05.2 Cough type: subacute Time Spent (min) 32 Assessment & Plan Assessment & Plan (1) Rhinosinusitis: Code(s): J32.9 - Chronic sinusitis, unspecified Category: Medical (2) Asthma: Code(s): J45.909 - Unspecified asthma, uncomplicated Category: Medical Qualifiers: Asthma severity: unspecified severity Asthma persistence: unspecified Asthma complication type: unspecified Qualified Code(s): J45.909 - Unspecified asthma, uncomplicated (3) Cough: Code(s): R05.9 - Cough, unspecified Category: Medical Qualifiers: Cough type: subacute Qualified Code(s): R05.2 - Subacute cough Plan Plan Patient was informed and verbally consented to the use of an ambient scribe for clinic note documentation during this visit. 1. Rhinosinitis The patient presents with a month-long productive cough with yellowish sputum and an in-office finding of a low-grade fever. To be on the safe side, a course of antibiotics (Z-Pepe) was prescribed. A tapered dose of prednisone 10 mg will also be started to help her feel better, beginning with 40 mg for two days, then 30 mg for two days, 20 mg for two days, and finally 10 mg for two days. A prescription for benzonatate will be resent for cough suppression, and the patient was advised to increase fluid intake. 2. Asthma The patient has a history of asthma and was previously unable to obtain an albuterol inhaler due to insurance issues. The office staff will work on obtaining a prior authorization for an inhaler. The patient is advised to keep her scheduled follow-up appointment for August 13 and to call if she does not begin to feel better. Discussion Notes I explained to the patient that given her low-grade fever and the duration of her cough, I would prescribe a Z-Pepe antibiotic to be on the safe side. I also discussed prescribing a course of prednisone which should help her feel better more quickly, but I advised her to be careful with alcohol consumption while taking it. I detailed the tapering schedule for the prednisone, starting high and gradually decreasing the dose over 8 days. I informed her that we would resend the benzonatate prescription for her cough and that my staff would work on a prior authorization for an inhaler. I recommended increasing her fluid intake. For follow-up, I advised her to keep her appointment on August 13 and to call us if she is not getting any better, though I expect she will feel better soon. Patient Instructions - Take the Z-Pepe antibiotic as prescribed. - Take the prednisone medication according to the following schedule: Take 4 pills at once each day for 2 days, then 3 pills at once each day for the next 2 days, then 2 pills at once each day for the next 2 days, and finally 1 pill each day for the last 2 days. - A prescription for benzonatate has been sent to your pharmacy to help with your cough. - Be careful about drinking alcohol while you are taking prednisone. - Make sure to drink plenty of fluids. - Our office will work on getting insurance approval for an inhaler for you. - Keep your scheduled appointment for August 13. - Please call our office if you start to feel worse or your symptoms do not improve. Medications: New prednisone see taper instructions take 4 tabs x 2 days, then 3 tabs x 2 days, then 2 tabs x 2 days, then 1 tab x 2 days =20 tabs for eight days 10 mg PO DIRECTED 20 tabs 0RF azithromycin For 250 mg dose pack: take 500 mg today (day 1), then 250 mg for 4 days (days 2-5) PO 6 tabs 0RF Refilled benzonatate 200 mg PO BID PRN 30 caps 0RF cough
--- OUTSIDE RECORDS SUMMARY | 2025-06-19 11:36 | XMS_ITS | Encounter Summary ---
Author Organization [facility] Address [address] [place] [address] Phone Care Team Providers Care Equipment Maintenance Supervisor Name Role Phone Megan Mendoza MD Primary Care Provider [phone] Encounter Details Date Type Department Care Team (Late st Contact Info) Description 02/11/2017 Conversion Encounter [facility] [place] [address] [place] [address] Social History Tobacco Use Types Packs/Day Years [...] on filedocumented in this encounter Care Teams Equipment Maintenance Supervisor Relationship Specialty Start Date End Date Megan Mendoza MD [address] [place] [address] PCP - General 02/05/17 08/12/22 documented as of this encounter
--- OUTSIDE RECORDS SUMMARY | 2025-06-19 11:36 | XMS_ITS | Encounter Summary ---
Author Organization [facility] Address [address] [place] [address] Phone Care Team Providers Care Fuel Cell Builder Name Role Phone Megan Mendoza MD Primary Care Provider [phone] Encounter Details Date Type Department Care Team (Late st Contact Info) Description 06/11/2010 Documentation [facility] [place] [address] [place] [address] Family Medicine, Physician [address] [place], [place] [phone] Social History Tobacco Use Types Packs/Day Years Used Date Smoking Tobacco: Never Assessed Comments Unknown Sex and Gender Information Value Date Recorded Sex Assigned at Not on file Legal Sex Female 4:45 PM EDT Gender Identity Not on file Sexual Orientation Not on file documented as of this encounter Plan of Treatment Not on file documented as of this encounter Visit Diagnoses Not on filedocumented in this encounter Care Teams Fuel Cell Builder Relationship Specialty Start Date End Date Megan Mendoza MD [address] [place] [address] NEGRA Mahmood [id number] PCP - General 02/05/17 08/12/22 documented as of this encounter
--- OUTSIDE RECORDS SUMMARY | 2025-06-19 11:36 | XMS_ITS | Encounter Summary ---
Author Organization [facility] Address [address] [place] [address] Phone Care Team Providers Care Senior Process Analyst Name Role Phone Megan Mendoza MD Primary Care Provider [phone] Encounter Details Date Type Department Care Team (Late st Contact Info) Description 06/30/2011 Documentation [facility] [place] [address] [place] [address] Family Medicine, Physician [address] [place], [place] [phone] Social History Tobacco Use Types Packs/Day Years [...] on filedocumented in this encounter Care Teams Senior Process Analyst Relationship Specialty Start Date End Date Megan Mendoza MD [address] [place] [address] NEGRA Mahmood [id number] PCP - General 02/05/17 08/12/22 documented as of this encounter
--- OUTSIDE RECORDS SUMMARY | 2025-06-19 11:36 | XMS_ITS | Encounter Summary ---
Author Organization [facility] Address [address] [place] [address] Phone Care Team Providers Care Stile Ripsaw Operator Name Role Phone Megan Mendoza MD Primary Care Provider [phone] Encounter Details Date Type Department Care Team (Late st Contact Info) Description 12/02/2012 [place] [facility] [place] [address] [place] [address] Family Medicine, Physician [address] [place], [place] [phone] Social History Tobacco Use Types Packs/Day Years [...] on filedocumented in this encounter Care Teams Stile Ripsaw Operator Relationship Specialty Start Date End Date Megan Mendoza MD [address] [place] [address] NEGRA Mahmood [address] PCP - General 02/05/17 08/12/22 documented as of this encounter
--- OUTSIDE RECORDS SUMMARY | 2025-06-19 11:36 | XMS_ITS | Encounter Summary ---
Author Organization [facility] Address [address] [place] [address] Phone Care Team Providers Care Exploitation Analyst Name Role Phone Megan Mendoza MD Primary Care Provider [phone] Encounter Details Date Type Department Care Team (Late st Contact Info) Description 12/06/[address] [facility] [place] [address] [place] [address] Family Medicine, Physician [address] [place], [place] [phone] Social History Tobacco Use Types Packs/Day Years [...] on filedocumented in this encounter Care Teams Exploitation Analyst Relationship Specialty Start Date End Date Megan Mendoza MD [address] [place] [address] NEGRA Mahmood [id number] PCP - General 02/05/17 08/12/22 documented as of this encounter
--- OUTSIDE RECORDS SUMMARY | 2025-06-19 11:36 | XMS_ITS | Clinical Summary ---
Author Organization [facility] Address [address] [place] [id number] Phone Care Team Providers Care Film Processing Shift Supervisor Name Role Phone Unavailable Primary Care Provider Unavailabl e Immunizations Immunization Administration Dates Next Due DTP 01/08/1994, 3,1992,07/30 DTaP 5 06/15/1997 H1N1 06/12/2009 HPV, Quadrivalent 01/23/2009,05/28/2008,11/10/19 08 Hep B, ped/adol 01/22/1993,1992,1992 Hib (PRP-T) 09/04/1993, 3,1992,07/30 Influenza Split 05/09/2010 Influenza, injectable, trivalent 06/12/2009,12/0 06/2007 MMR 03/23/1996,09/04/1993 Meningococcal Conj (Menactra) MCV4P 11/10/2007 OPV 06/15/1997, 4,1992,07/30 Td (adult) (MBL), 2 Lf tetan us toxoid, PF, adsorbed 11/04/2004 Tdap 11/10/2007 Varicella 01/23/2009,06/15/1997 Family History Relation Name Status Comments Brother Alive Brother: ADD/AD HD, Migraines Father Alive Father: Alive a nd well Maternal Grandfather Materna l grandfather: Hypertension, Asthma Maternal Grandmother Materna l grandmother: Hypertension Mother Alive Mother: Alive a nd well Paternal Grandfather Paterna l grandfather: , Kidney failure only had one ki Sister Alive Sister: Alive a nd well Social History Tobacco Use Types Packs/Day Years Used Date Smoking Tobacco: Never Comments:Never smoker Comments Unknown Sex and Gender Information Value Date Recorded Sex Assigned at Not on file Legal Sex Female 4:45 PM EDT Gender Identity Not on file Sexual Orientation Not on file Last Filed Vital Signs Vital Sign Reading Time Taken Comments Blood Pressure 120/80 12/01/2012 12:00 AM EDT Pulse - - Temperature 36.6 C (97.8 F) 09/02/2011 12:00 AM EST Respiratory Rate - - Oxygen Saturation - - Inhaled Oxygen Concentration - - Weight 74.8 kg (165 lb) 12/01/2012 12:00 AM EDT Height 163.3 cm (5' 4.3 ) 12/01/2012 12:00 AM ED T Body Mass Index 28.06 12/01/2012 12:00 AM EDT Plan of Treatment Health Maintenance Due Date Last Done Comments DTaP,Tdap,and Td Vaccines (7 - Td or Tdap) 11/09/2017 11/10/2007, 11/04/2004, 06/15/1997, Additional history exists Influenza Vaccines (#1) 2025 04/22/20, 05/09/2010, 06/12/2009, Additional history exists COVID-19 Vaccine ( - 2024- season) 2025 Hepatitis B Vaccines Completed 01/22/1993, 1992, 1992 HIB Vaccines Completed 09/04/1993, 12/27, 1992, Additional history exists MMR Vaccines Completed 03/23/1996, 09/04/1993 IPV Vaccines Completed 06/15/1997, 12/26, 1992, Additional history exists Meningococcal Vaccine Aged Out 11/10/2007 No fly kiera eligible based on patient's age to complete this topic HPV Vaccines Completed 01/23/2009, 06/2007, 11/10/2007 Varicella Vaccines Completed 01/23/2009, 06/15/1997 Hepatitis A Vaccines Aged Out No long er eligible based on patient's age to complete this topic Men B Vaccine Aged Out No longer elig ible based on patient's age to complete this topic Pneumococcal Vaccine Aged Out No long er eligible based on patient's age to complete this topic Procedures * Due to [place] state law, this organization might not be sharing sensitive test results. Procedure Name Priority Date/Time Associated Diagnosis Comments CHLAMYDIA AND GONORRHEA, AMPLIFIED Routine 12/02/2012 4:39 PM EDT from Last 3 Months or Most Recently Relevant to Health Maintenance Results * Due to [place] state law, this organization might not be sharing sensitive test results. * Chlamydia and Gonorrhoea, Amplified (12/02/2012 4:39 PM EDT) URINE GC AMP PROBE NEGATIVE [facility] Comment: NO NEISSERIA GONORRHOEAE RNA DETECTED IN THIS PATIENT'S SAMPLE. (REFERENCE RANGE/NORMAL VALUE: NOT DETECTED) NOTE: THIS TEST USES TUB TENDER-MEDIATED AMPLIFICATION METHOD TO DETECT rRNA FROM C.TRACHOMATIS AND N.GONORRHOEAE. A NEGATIVE RESULT DOES NOT PRECLUDE INFECTION. THE APTIMA COMBO 2 ASSAY IS NOT INTENDED FOR THE EVALUATION OF SUSPECTED SEXUAL ABUSE OR FOR OTHER MEDICO LEGAL INDICATIONS. THERAPEUTIC FAILURE OR SUCCESS CANNOT BE DETERMINED WITH THE APTIMA COMBO 2 ASSAY SINCE NUCLEIC ACID MAY PERSIST FOLLOWING APPROPRIATE ANTIMICROBIAL THERAPY. IN THE CASE OF A NEGATIVE URINE RESULT, TESTING OF AN ENDOCERVICAL (FEMALE) OR URETHRAL (MALE) SPECIMEN IS RECOMMENDED IF THERE IS HIGH CLINICAL SUSPICION OF INFECTION. URINE CHLAMYDIA AMP PROBE NEGATIVE [facility] Comment: NO CHLAMYDIA TRACHOMATIS RNA DETECTED IN THIS PATIENT'S SAMPLE. (REFERENCE RANGE/NORMAL VALUE: NOT DETECTED) 12/02/2012 4:39 PM EDT Narrative [facility] - 12/02/2012 4:39 PM EDT URINE CHLAMYDIA GC AMP PROBE us Megan Mendoza MD LAB MICROBIOLOGY - GENERAL ORDER LATOSHA Final Result [facility] [address] [place] [id number], from Last 3 Months or Most Recently Relevant to Health Maintenance
--- OUTSIDE RECORDS SUMMARY | 2025-06-19 11:36 | XMS_ITS | Encounter Summary ---
Author Organization [facility] Address [address] [place] [address] Phone Care Team Providers Care Contract Processor Name Role Phone Megan Mendoza MD Primary Care Provider [phone] Encounter Details Date Type Department Care Team (Late st Contact Info) Description 09/02/2011 [place]ation [facility] [place] [address] [place] [address] Family Medicine, Physician [address] [place], [place] [phone] Social History Tobacco Use Types Packs/Day Years [...] on filedocumented in this encounter Care Teams Contract Processor Relationship Specialty Start Date End Date Megan Mendoza MD [address] [place] [address] NEGRA Mahmood [address] PCP - General 02/05/17 08/12/22 documented as of this encounter
--- OUTSIDE RECORDS SUMMARY | 2025-06-19 11:36 | XMS_ITS | Encounter Summary ---
Author Organization [facility] Address [address] [place] [address] Phone Care Team Providers Care Embedded Processor Name Role Phone Megan Mendoza MD Primary Care Provider [phone] Encounter Details Date Type Department Care Team (Late st Contact Info) Description 02/06/2010 Documentation [facility] [place] [address] [place] [address] Family Medicine, Physician [address] [place], [place] [phone] Social History Tobacco Use Types Packs/Day Years [...] on filedocumented in this encounter Care Teams Embedded Processor Relationship Specialty Start Date End Date Megan Mendoza MD [address] [place] [address] NEGRA Mahmood [address] PCP - General 02/05/17 08/12/22 documented as of this encounter
== END 2025-06-19 12:28 | disposition home or self-care (01) ==
LOC: HO.HMCH 10:22
DX: J32.9 Chronic sinusitis, unspecified (principal); J45.909 Unspecified asthma, uncomplicated; R05.2 Subacute cough